=== PATIENT | male | born 1960 | race Caucasian/White ===

== ENCOUNTER 2017-05-07 05:53 | Inpatient (IN) | payer OTHER ==
[~2017-05-07] VITALS: Ht 182.9 cm; Wt 84.4 kg
--- NOTE | ~2017-05-07 | HC ---
[facility] [place] [address] [place] [address] CONSULTATION Name: OMARI MOLINA Room #: 405-P ADM IN .R.#: [id number] Admission: 05/07/17 Attend Phys: Luis García MD Discharge: Date of : 58 Report #: [id number] THIS REPORT FOR: //name// CC: Luis Qiu DATE OF SERVICE: 05/07/2017 CHIEF COMPLAINT: Left proximal femur fracture. HISTORY OF PRESENT ILLNESS: This 56-year-old rather frail and disheveled gentleman, apparently lives alone, but has significant chronic medical problems and joint problems and uses a cane or walker for ambulation. He also has severe chronic pain management issues and is currently on about 320 mg of oxycodone daily. He had a previous fall with a right hip fracture, treated with surgical fixation about 5 years ago. Today, he got up for a drink of water and fell over a rug injuring the left hip. He has no other injuries. X-rays confirmed a nondisplaced fracture in the intertrochanteric region of the left proximal femur. At the time of my evaluation, he is quite uncomfortable. His subjective complaints seemed to be much greater than one would expect given a nondisplaced fracture, I suspect this may be related to his chronic pain situation and chronic aggressive narcotic use. He denies any other areas of new discomfort, but does complain of chronic pain in the neck and back, which he states is the primary reason for his chronic narcotic medications. He seems to have good movement of the neck and both upper extremities without localized discomfort. The back is uncomfortable in a rather diffuse fashion and he is unwilling to demonstrate much movement. The right lower extremity reveals satisfactory alignment and range of motion of the hip and knee, although he does complain of some generalized discomfort. The left lower extremity is too uncomfortable to move, his symptoms are primarily at the left hip, but he notes some chronic radiating pain as well. There is no obvious deformity. There is no shortening nor any rotational deformity. Distal neurologic status appears to be intact. X-rays of the pelvis and both hips reveal an old fracture on the right side with fixation using a TFN device. On the left side, there is a new fracture in the intertrochanteric region near the base of the femoral neck, which is slightly angulated, but in overall acceptable position. IMPRESSION: In summary, this gentleman has a new fracture involving the left proximal femur, which would be best treated with surgical repair. I have discussed this with the patient and he understands and wishes to proceed. He has not had anything to eat or drink yet today and so, I think probably we can proceed this morning if medical clearance and OR availability will allow. I [address] [address] CONSULTATION Name: OMARI MOLINA Room #: 405-P ADM IN M.R.#: [id number] Admission: 05/07/17 Attend Phys: Luis García MD Discharge: Date of : 58 Report #: [id number] suspect he will have great difficulty with postop pain management given his chronic history of excessive narcotic use. He will probably also need significant assistance as he currently lives alone and will clearly need more assistance for management over the coming few weeks. We will plan to proceed with fixation using a TFN nail device for the left proximal femur fracture. <ELECTRONICALLY SIGNED> By: Saeid Carlson MD 05/08/17 0741 1035 1221 Saeid Carlson MD /nt
--- NOTE | ~2017-05-07 | H ---
[facility] [address] [place] [address] HISTORY AND PHYSICAL Name: OMARI MOLINA Room #: 405-P ADM IN M.R.#: [id number] Admission: 05/07/17 Attend Phys: Luis García MD Discharge: Date of : 58 Report #: [id number] THIS REPORT FOR: //name// CC: Luis García Fernando Uyen DATE OF SERVICE: 05/07/2017 REASON FOR ADMISSION: Fall with hip fracture. HISTORY OF PRESENT ILLNESS: The patient is a pleasant 56-year-old gentleman. He reportedly tripped on a rug at home and fell down today and subsequently is admitted to the emergency room where he has been diagnosed with a left hip intertrochanteric fracture. He is in severe pain related to the same and hence is a somewhat poor historian. He denies any syncopal event or dizziness associated with the same. He denies chest pain, shortness of breath, nausea, vomiting, diarrhea, dizziness, headaches, skin rashes or other problems. He does not report any significant past medical history, but he is on large doses of narcotic pain medications for severe chronic pain. PAST MEDICAL HISTORY: Significant for; 1. Severe chronic pain with reported hardware in spine and neck and multiple injuries. 2. Reported numbness, which is chronic in upper and lower extremities. 3. Right hip fracture post-screw and oswaldo. PAST SURGICAL HISTORY: Includes spinal and back surgery as well as neck surgery. SOCIAL HISTORY: Active smoker, one and half packs a day. Denies alcohol or drug use. He is presently disabled. FAMILY HISTORY: Denies significant family history. HOME MEDICATIONS: Include OxyContin 80 mg 3 times a day scheduled as well as short-acting oxycodone 30 mg 3 times a day scheduled as well as reflux medication. REVIEW OF SYSTEMS: Twelve-point review of systems performed, negative except as mentioned in the history of present illness. PHYSICAL EXAMINATION: VITAL SIGNS: Afebrile, pulse 64, respiratory rate 18, O2 sat 95 on room air, blood pressure is 109/63. GENERAL: Disheveled gentleman with significantly poor dentition, in significant pain and distress. [facility] [address] [place] [address] HISTORY AND PHYSICAL Name: OMARI MOLINA Room #: 405-P [facility] IN ..#: [id number] Admission: 05/07/17 Attend Phys: Luis García MD Discharge: Date of : 58 Report #: [id number] CARDIOVASCULAR: S1 and S2 present. Regular. RESPIRATORY: Air entry present bilaterally. ABDOMEN: Soft, nontender. EXTREMITIES: Left hip is tender to palpation. NEUROLOGIC: Awake, alert, and appropriately oriented. SKIN: Dry, but quite dirty. LABS AND INVESTIGATIONS: CBC notable for mildly low platelets of 120. Chemistry is unremarkable. Otherwise, lab work unremarkable. EKG is pending. Chest x-rays shows chronic lung changes. Pelvic x-ray shows old infarct, right hip fracture reduced with femoral neck compression screw and intramedullary oswaldo and new minimally angulated left intertrochanteric hip fracture. ASSESSMENT AND PLAN: This is a 56-year-old gentleman admitted with a fall and with a left hip fracture. PLAN: 1. Left hip fracture. The patient is planned for definitive operative repair by Dr. Carlson later this morning. In the meantime, we will attempt pain control with hydromorphone, the patient has an extremely high pain tolerance and we will be utilizing higher doses of hydromorphone for this reason, as he remains very poorly controlled despite multiple medications received thus far in the Emergency Room. 2. Narcotic dependence with high level of pain medication tolerance. We will resume long-acting medicines once able postop. 3. Deep venous thrombosis prophylaxis, presently only mechanical, postop we will defer anticoagulation to Orthopedic Surgery. 4. Probable underlying chronic obstructive pulmonary disease. We will start p.r.n. nebulizers. <ELECTRONICALLY SIGNED> By: Luis García MD 05/07/17 1125 0812 0847 Luis García MD /nt
--- NOTE | ~2017-05-07 | EKG ---
[address] [address] ELECTROCARDIOGRAM REPORT Name: OMARI MOLINA Room #: 405-P ADM IN M.R.#: [id number] Admission: 05/07/17 Attend Phys: Luis García MD Discharge: Date of : 58 Report #: [id number] THIS REPORT FOR: //name// [facility] Test Date: 2017-05-08 Test Time: 07:55:16 Pat Name: OMARI MLOINA Department: Room: 405 Gender: M [employer] Representative: flor : 1960 Requested By: Luis García Order Number: [id number] MD: Kavon Her Measurements Intervals [place] Rate: 53 P: 62 SC: 230 QRS: -53 QRSD: 99 T: 57 QT: 451 QTc: 424 Interpretive Statements Sinus bradycardia Prolonged SC interval LAD, consider LAFB or inferior infarct Low voltage, extremity leads Compared to ECG 12/22/2010 15:51:35 No significant change was found Electronically Signed On 05-10-2017 13:26:21 CDT by Kavon Her [email or web address] <ELECTRONICALLY SIGNED> By: Kavon Her MD, FACC 05/10/17 1326 0755 [id number] Kavon Her MD, [facility] /EPI
--- NOTE | ~2017-05-07 | O ---
[facility] [place] [address] [place] [address] OPERATIVE REPORT Name: OMARI MOLINA Room #: 405-P ADM IN M.R.#: [id number] Admission: 05/07/17 Attend Phys: Luis García MD Discharge: Date of : 58 Report #: [id number] THIS REPORT FOR: //name// CC: Luis García Fernando Qiu DATE OF SERVICE: 05/07/2017 DATE OF SERVICE: 05/07/2017 PREOPERATIVE DIAGNOSIS: Left proximal femur intertrochanteric fracture. POSTOPERATIVE DIAGNOSIS: Left proximal femur intertrochanteric fracture. PROCEDURE: Open reduction and internal fixation left intertrochanteric femur fracture using TFN nail fixation device. SURGEON: Saeid Carlson MD INDICATIONS: This frail 56-year-old gentleman has a number of general medical problems and severe chronic pain management issues and has been on very high dose narcotics for some time. He lives independently, but occasionally uses a walker or cane. He fell injuring the left hip. X-rays confirm a nondisplaced intertrochanteric fracture. We have elected to go ahead with surgical repair. DESCRIPTION OF PROCEDURE: The patient was taken to the operating room where he was placed under general anesthesia. He was positioned on the fracture table with gentle longitudinal traction and slight internal rotation. The lateral aspect of the left hip and thigh were meticulously prepped and draped. C-arm was used to visualize the hip and the alignment seems to be anatomic. A longitudinal skin incision was made just proximal to the greater trochanter and a guidewire passed through the trochanter and down the intramedullary canal. The trochanter was opened with a reamer and a [employer] TFN nail was utilized using an 11 mm diameter nail. This was advanced appropriately. A lateral outrigger guidewire was placed into the mid to lower portion of the femoral neck and head. It was visualized on both AP and lateral views and seemed to be acceptable. The lateral cortex was over reamed and the guidewire measured. I felt a 115 mm helical blade would fit most appropriately. This was first reamed and then at advanced up into the femoral neck and head bringing the tip of the helical blade to a point about 1 cm below the subchondral bone and it seated nicely and appeared to be secure. The superior locking screw was tightened down. A distal internal locking screw was placed using the lateral outrigger guide system. A 56 mm screw length was selected. This was inserted and seated nicely. The outrigger was removed and permanent films taken with C-arm showing good position of the fixation device both in the shaft and in the femoral head and neck region. The fracture appears to be anatomically aligned. The [address] [address] OPERATIVE REPORT Name: OMARI MOLINA Room #: 405-P [facility] IN M.R.#: [id number] Admission: 05/07/17 Attend Phys: Luis García MD Discharge: Date of : 58 Report #: [id number] small incisions were then thoroughly irrigated and dried. Good hemostasis was established. The fascia and deeper tissues in the larger wounds were closed with 0 Vicryl. The more superficial tissues were closed with 2-0 Monocryl. The skin was closed with skin ken. A sterile dressing was applied. The patient was awakened and returned to recovery room in satisfactory condition. <ELECTRONICALLY SIGNED> By: Saeid Carlson MD 05/08/17 0741 1132 1152 Saeid Carlson MD /nt
[~2017-05-07 05:53] MED LIST: ATROVENT30 ML; LASIX 80 MG TAB80 M1; OXYCONTIN CR 8080 M1; OXYCONTIN30 MG; ZEGERID OTC 201 EACH
[2017-05-07 05:55] VITALS: BP 141/87
[2017-05-07] MEDS ORDERED: OXYCODONE HCL15 MG PO (06:56)
[2017-05-07 07:13] LABS: HEMATOCRIT 39.6 % (42.0-52.0); HEMOGLOBIN 13.8 gm/dL (14.0-18.0); MCH 30.3 pg (26.0-34.0); MCHC 34.9 g/dL (28.0-37.0); MCV 86.8 fL (80.0-100.0); RBC 4.56 mil/uL (4.50-6.00); RDW 16.6 % (10.5-14.5); WBC 7.2 thou/uL (4.0-11.0)
[2017-05-07 07:23] LABS: CALCIUM 8.4 mg/dL (8.5-10.1); CREATININE 0.8 mg/dL (0.7-1.3); POTASSIUM 3.9 mmol/L (3.5-5.1)
[2017-05-07 07:27] LABS: INR 1.1; PROTIME 11.2 Seconds (9.3-11.4)
[2017-05-07 07:53] VITALS: BP 109/63
[2017-05-07] MEDS ORDERED: OXYCONTIN20 M1 PO ×2 (07:58→08:00)
[2017-05-07 09:47] VITALS: BP 128/68
[2017-05-07 13:00] VITALS: BP 134/72
[2017-05-07 18:54] VITALS: BP 126/84
[2017-05-07] MEDS ORDERED: NEXIUM40 MG PO (21:09)
[2017-05-08 03:53] VITALS: BP 133/73
[2017-05-08 03:55] LABS: CALCIUM 8.5 mg/dL (8.5-10.1); CREATININE 0.6 mg/dL (0.7-1.3)
[2017-05-08 04:08] LABS: HEMATOCRIT 42.2 % (42.0-52.0); HEMOGLOBIN 14.3 gm/dL (14.0-18.0); MCH 29.7 pg (26.0-34.0); MCHC 33.8 g/dL (28.0-37.0); MCV 87.9 fL (80.0-100.0); RBC 4.8 mil/uL (4.50-6.00); RDW 16.7 % (10.5-14.5); WBC 7.4 thou/uL (4.0-11.0)
[2017-05-08 08:45] VITALS: BP 136/73
[2017-05-08 14:00] VITALS: BP 112/65
[2017-05-08 15:49] VITALS: BP 119/70
[2017-05-09 03:58] VITALS: BP 110/63
[2017-05-09 07:15] VITALS: BP 101/62
[2017-05-09 15:52] VITALS: BP 113/61
[2017-05-09 20:00] VITALS: BP 105/68
[2017-05-10 04:43] LABS: HEMATOCRIT 35.9 % (42.0-52.0); MCH 29.3 pg (26.0-34.0); MCHC 33.6 g/dL (28.0-37.0); MCV 87.3 fL (80.0-100.0); RBC 4.11 mil/uL (4.50-6.00); RDW 16.5 % (10.5-14.5); WBC 4.7 thou/uL (4.0-11.0)
[2017-05-10 04:55] LABS: ALBUMIN 2.6 g/dL (3.4-5.0); CALCIUM 8.1 mg/dL (8.5-10.1); CREATININE 0.7 mg/dL (0.7-1.3); POTASSIUM 4.1 mmol/L (3.5-5.1); TOTAL BILIRUBIN 0.9 mg/dL (<0.1-1.0); TOTAL PROTEIN 5.8 g/dL (6.4-8.2)
[2017-05-10 05:00] VITALS: BP 101/55
[2017-05-10 05:03] LABS: HEMOGLOBIN 12.1 gm/dL (14.0-18.0)
[2017-05-10 08:00] VITALS: BP 116/59
[2017-05-10 08:07] VITALS: BP 116/59
[2017-05-10 19:04] VITALS: BP 92/57
[2017-05-11 03:50] VITALS: BP 101/54
[2017-05-11 05:05] LABS: HEMATOCRIT 36.2 % (42.0-52.0); MCH 29.4 pg (26.0-34.0); MCHC 33.3 g/dL (28.0-37.0); MCV 88.3 fL (80.0-100.0); RBC 4.1 mil/uL (4.50-6.00); RDW 16.1 % (10.5-14.5); WBC 5.6 thou/uL (4.0-11.0)
[2017-05-11 08:07] VITALS: BP 101/54
[2017-05-11] MEDS ORDERED: OXYCODONE HCL30 MG PO (11:29)
[2017-05-11] MEDS ORDERED: OXYCONTIN40 MG PO (11:29)
[2017-05-11] MEDS ORDERED: COLACE100 MG PO (13:26)
[2017-05-11] MEDS ORDERED: ENOXAPARIN30 MG/0.1 SUBQ (13:26)
[2017-05-11] MEDS ORDERED: DUONEB 2.5-0.5 M3 ML INH (13:26)
== END 2017-05-11 17:48 | DRG 480 ==
LOC: ER 05:53 → 4N 07:33 → EROBS 07:33 → 4N 08:30
PROVIDERS: Emergency Medicine; Hospitalist
PROC: 0JDN0ZZ Extraction of Right Lower Leg Subcutaneous Tissue and Fascia, Open Approach (ICD-10-PCS; principal; 2017-05-07)
PROC: 0QS904Z Reposition Left Femoral Shaft with Internal Fixation Device, Open Approach (ICD-10-PCS; 2017-05-07)
DX: S72.002A Fracture of unspecified part of neck of left femur, initial encounter for closed fracture (principal); E43 Unspecified severe protein-calorie malnutrition; F11.20 Opioid dependence, uncomplicated; S80.911A Unspecified superficial injury of right knee, initial encounter; Z60.2 Problems related to living alone; G89.29 Other chronic pain; F17.210 Nicotine dependence, cigarettes, uncomplicated; D69.6 Thrombocytopenia, unspecified; K59.00 Constipation, unspecified; Z68.25 Body mass index [BMI] 25.0-25.9, adult; Z79.899 Other long term (current) drug therapy; Z88.6 Allergy status to analgesic agent; W01.0XXA Fall on same level from slipping, tripping and stumbling without subsequent striking against object, initial encounter; Y93.89 Activity, other specified; Y92.89 Other specified places as the place of occurrence of the external cause; Y99.8 Other external cause status
CPT/HCPCS: 10091; 50010; 50101; 50133; 50386; 51412; 51538; 51817; 52145; 52146; 52304; 56524; 56525; 57092; 62110; 62900; 70005

== ENCOUNTER 2018-01-08 08:26 | Emergency (ER) | payer OTHER ==
[~2018-01-08] VITALS: Ht 182.9 cm; Wt 77.1 kg
[~2018-01-08 08:26] MED LIST changes: +COLACE100 MG PO; +DUONEB 2.5-0.5 M3 ML INH; +ENOXAPARIN30 MG/0.1 SUBQ; +NEXIUM40 MG PO; +OXYCODONE HCL15 MG PO; +OXYCODONE HCL30 MG PO; +OXYCONTIN20 M1 PO; +OXYCONTIN40 MG PO
[2018-01-08] MEDS ORDERED: SPIRIVA18 MCG INH (08:45)
[2018-01-08] MEDS ORDERED: CLEOCIN HCL150 MG PO (09:56)
== END 2018-01-08 10:24 | disposition home or self-care (01) ==
LOC: ER 08:26
DX: L02.31 Cutaneous abscess of buttock (principal); R11.0 Nausea; F17.210 Nicotine dependence, cigarettes, uncomplicated; Z88.6 Allergy status to analgesic agent